=== PATIENT | male | born 1995 | race Caucasian/White ===

== ENCOUNTER → 2023-09-02 | Outpatient (CLI) | payer OTHER | LOC: M RAD 11:31 | PROVIDERS: ATTEND Physician Assistant | DX: I83.90 Asymptomatic varicose veins of unspecified lower extremity (principal); M25.511 Pain in right shoulder; I87.8 Other specified disorders of veins ==

== ENCOUNTER → 2024-02-19 | Outpatient (REF) | LOC: M PLAIMG 12:59 | PROVIDERS: ATTEND Nurse Practitioner Family | DX: M54.2 Cervicalgia (principal); M40.56 Lordosis, unspecified, lumbar region ==